=== PATIENT | female | born 1965 | race Caucasian/White ===

== ENCOUNTER 2017-10-02 09:49 | Emergency (ER) | payer BC ==
--- NOTE | 2017-10-02 10:18 | UC ---
FLU HPI - HPI Summary HPI Summary: Pt presents with cough, sore throat, and body aches that started yesterday. She has felt feverish, but has not taken her temperature. Has been taking ibuprofen with good relief of symptoms. She is most concerned because she is going to [place] tomorrow on business and doesn't want to be ill. She does have a history of asthma, but does not have any inhalers that she uses. Denies SOB, chest pain, abdominal pain, n/v/d/c. - History of Current Complaint Stated Complaint: SORE THROAT BODYACHES Time Seen by Provider: 10/02/17 10:17 Hx Obtained From: Patient Hx Last Menstrual Period: 11/08/15 Onset/Duration: Sudden Onset - Allergy/Home Medications Allergies/Adverse Reactions: Allergies Allergy/AdvReac Type Severity Reaction Status Date / Time No Known Allergies Allergy Verified 05/09/15 09:21 PMH/Surg Hx/FS Hx/Imm Hx Respiratory History: Asthma - Surgical History Surgical History: Yes Surgery Procedure, Year, and Place: tonsils & adenoids - Family History Known Family History: Positive: None - Social History Occupation: Employed Full-time Lives: With Family Alcohol Use: Occasionally Substance Use Type: None Smoking Status (MU): Never Smoked Tobacco Review of Systems Constitutional: Fever, Fatigue, Other - Body aches Skin: Negative Eyes: Negative ENT: Sore Throat Respiratory: Cough Cardiovascular: Negative Gastrointestinal: Negative Musculoskeletal: Negative Neurological: Negative Psychological: Negative All Other Systems Reviewed And Are Negative: Yes Physical Exam - Summary Physical Exam Summary: GENERAL: NAD. WDWN. No pain distress. SKIN: No rashes, sores, ulcers, masses, lesions. HEENT: Head: AT/NC Eyes: Conjunctiva clear without inflammation or discharge. Ears: Hearing grossly normal. TMs intact, no bulging, erythema, or edema. Nose: Nasal mucosa pink and moist. NTTP maxillary and frontal sinus. Throat: Posterior oropharynx without exudates, erythema, or tonsillar enlargement. Uvula midline. NECK: Supple. Nontender. Anterior LAD CHEST: Mild wheezing throughout. CTAB. No r/r. No accessory muscle use. Breathing comfortably and in no distress. CV: RRR. Without m/r/g. Pulses intact. Brisk cap refill. NEURO: Alert. CN II-XII grossly intact. PSYCH: Age appropriate behavior. Triage Information Reviewed: Yes Flu Course/Dx - Course Course Of Treatment: Influenza B positive. She was offered a Duoneb in the office today, but declined. - Differential Dx/Diagnosis Provider Diagnoses: Influenza B Discharge - Discharge Plan Condition: Stable Disposition: HOME Prescriptions: Albuterol HFA INHALER* [Ventolin HFA Inhaler*] 2 puff INH Q6H PRN #1 mdi PRN Reason: Sob/Wheezing Oseltamivir CAP* [Tamiflu CAP*] 75 mg PO BID #10 cap Patient Education Materials: Asthma (ED), Influenza (DC) Referrals: No Primary Care Phys,NOPCP [Primary Care Provider] - Additional Instructions: If you develop a fever, shortness of breath, chest pain, new or worsening symptoms - please call your PCP or go to the ED. Your blood pressure was mildly elevated at todays visit. Please see your primary provider within 4 weeks for recheck and re-evaluation.
[2017-10-02 10:23] VITALS: BP 134/85
[2017-10-02] MEDS ORDERED: Ibuprofen TAB* 600 MG PO ONE (10:23)
== END 2017-10-02 10:52 | disposition home or self-care (01) ==
LOC: UCEAST 09:49
DX: J10.1 Influenza due to other identified influenza virus with other respiratory manifestations (principal); J45.909 Unspecified asthma, uncomplicated
CPT/HCPCS: 87502; 99212; A9270-GY; G0463

== ENCOUNTER 2017-10-19 18:45 | Emergency (ER) | payer BC ==
[2017-10-19 19:08] VITALS: BP 102/74
[2017-10-19] MEDS ORDERED: Tetan/Diph/Pertus SYR(Tdap)* 0.5 ML SYR(BOOSTRIX) use SYR IM ONE (19:43)
--- NOTE | 2017-10-19 19:47 | UC ---
Bite Injury/Animal HPI - HPI Summary HPI Summary: Was petting her neighbor's cat which she is cat-sitting, and the animal bit her on dorsum of right hand at around 10am. She has noticed increased swelling and pain when she moves hand. She is left handed. States cat is well cared for and she has not noticed any abnormal behaviour. Does not remember when her last tetanus vaccination was. - History of Current Complaint Chief Complaint: UCBiteInjury Stated Complaint: CAT BITE Time Seen by Provider: 10/19/17 19:24 Hx Obtained From: Patient Hx Last Menstrual Period: 11/08/15 ?: No Severity Currently: Moderate Severity Initially: Mild Pain Intensity: 8 Onset/Duration: Sudden Onset Type of Bite: Animal Has Animal Been Immunized?: Yes Character: Puncture Aggravating Factor(s): Exertion Alleviating Factor(s): Rest Associated Signs And Symptoms: Positive: Swelling Hx of Bite: Provoked by: - petting Animal Available for Observation: Yes Animal Control Notified: No Body - Head: 1 - puncture wound 2 - puncture wound - Allergies/Home Medications Allergies/Adverse Reactions: Allergies Allergy/AdvReac Type Severity Reaction Status Date / Time No Known Allergies Allergy Verified 10/19/17 19:01 Home Medications: Home Medications Ascorbic Acid TAB* [Vitamin C TAB*] 500 mg PO DAILY 10/19/17 [History Confirmed 10/19/17] Ibuprofen TAB* [Advil TAB*] 400 mg PO Q6H PRN 10/19/17 [History Confirmed ] Multivitamin [One Daily] 1 each PO DAILY 10/19/17 [History Confirmed 10/19/17] Pseudoephedrine HCl [Sudafed 12 Hour] 120 mg PO Q12HR PRN 10/19/17 [History Confirmed 10/19/17] Vitamin E CAP* 400 unit PO DAILY 10/19/17 [History Confirmed 10/19/17] PMH/Surg Hx/FS Hx/Imm Hx Previously Healthy: Yes - Surgical History Surgical History: Yes Surgery Procedure, Year, and Place: tonsils & adenoids - Family History Known Family History: Positive: None - Social History Alcohol Use: Occasionally Substance Use Type: None Smoking Status (MU): Never Smoked Tobacco Review of Systems Constitutional: Negative Skin: Other - puncture wound All Other Systems Reviewed And Are Negative: Yes Physical Exam Triage Information Reviewed: Yes Appearance: Well-Appearing, Obese Vital Signs: Initial Vital Signs Temp 99.5 F 10/19/17 19:03 Pulse 88 10/19/17 19:03 Resp 18 10/19/17 19:03 BP 102/74 10/19/17 19:03 Pulse Ox 100 10/19/17 19:03 Vital Signs Reviewed: Yes Eyes: Positive: Conjunctiva Clear Neck exam: Normal Respiratory: Positive: Chest non-tender, Lungs clear, Normal breath sounds, No respiratory distress Cardiovascular: Positive: RRR, No Murmur, Pulses Normal Skin Exam: Other - puncture wounds on dorsum right hand as described on exhibit Bite Injury Course/Dx - Course Course Of Treatment: start augmentin twice a day for 10 days. Wound care instructions given to patient. Patient states she will take ibuprofen she has at home. Follow up with PCP. - Differential Dx/Diagnosis Provider Diagnoses: Cat Bite Discharge - Sign-Out/Discharge Documenting (check all that apply): Discharge - Discharge Plan Condition: Stable Disposition: HOME Patient Education Materials: Animal Bite (ED) Referrals: No Primary Care Phys,NOPCP [Primary Care Provider] - [facility] [place] PHYSICIAN REFERRAL [Outside] - Billing Disposition and Condition Condition: STABLE Disposition: HOME
== END 2017-10-19 20:00 | disposition home or self-care (01) ==
LOC: UCEAST 18:45
DX: S61.431A Puncture wound without foreign body of right hand, initial encounter (principal); W55.01XA Bitten by cat, initial encounter; Y93.89 Activity, other specified; Y92.009 Unspecified place in unspecified non-institutional (private) residence as the place of occurrence of the external cause; Z23 Encounter for immunization
CPT/HCPCS: 90472; 90715; 96372; 99212; G0463

== ENCOUNTER 2017-11-08 10:09 | Emergency (ER) | payer BC ==
[2017-11-08] MEDS ORDERED: oxyCODONE/Acetamin 5/325 MG* TAB PO ONE ×2 (10:29→14:41)
[2017-11-08] MEDS ORDERED: Ketorolac INJ* 60 MG/2 ML VIAL IM ONE (10:29)
--- NOTE | 2017-11-08 10:54 | RAD ---
HISTORY: Right ankle injury COMPARISONS: December 30, 2012 VIEWS: 3, Frontal, lateral, and oblique views of the right ankle FINDINGS: BONE DENSITY: Normal. BONES: There is an oblique fracture through the distal fibula. This is comminuted. There is a transverse fracture through the medial malleolus. There are calcaneal enthesophytes. JOINTS: There is no arthropathy. ALIGNMENT: There is medial subluxation of the tibia with suspected the talus with widening of the tibiofibular interval SOFT TISSUES: Unremarkable. OTHER FINDINGS: None. IMPRESSION: FRACTURES OF THE DISTAL FIBULA AND MEDIAL MALLEOLUS WITH WIDENING OF THE TIBIOFIBULAR INTERVAL
--- NOTE | 2017-11-08 13:15 | RAD ---
INDICATION: Traumatic right ankle fracture-closed reduction COMPARISON: November 08, 2017 TECHNIQUE: AP, lateral, and oblique views were obtained. FINDINGS: There is interval closed reduction with application of a cast. There is a fracture the distal fibular diaphysis with mild posterior displacement distal fracture fragment one bone width. There is a distracted medial malleolar fragment. There is persistent lateral subluxation. IMPRESSION: CLOSED REDUCTION. LATERAL AND MEDIAL MALLEOLAR FRACTURES. PERSISTENT LATERAL SUBLUXATION AT THE ANKLE MORTISE
[2017-11-08 14:55] VITALS: BP 108/72
--- NOTE | 2017-11-08 16:24 | ED ---
Margarita Montano Gabriel, scribed for Ivan Bowles MD on 11/08/17 at 1034 . Lower Extremity - HPI Summary HPI Summary: This patient is a 52 year old F BIBA to [facility] s/p fall that occurred earlier this morning. Pt states she was walking her cat when she slipped on her back deck, twisting her right ankle. Her ankle was in an unnatural position after the fall. The patient rates the pain 7/10 in severity. Patient reports right ankle pain. Patient denies dizziness, light headedness, and LOC. - History of Current Complaint Chief Complaint: EDExtremityLower Stated Complaint: FALL/RT ANKLE PAIN Time Seen by Provider: 11/08/17 10:11 Hx Obtained From: Patient Hx Last Menstrual Period: 11/08/15 Mechanism Of Injury: Fall From A Standing Position Onset of Pain: Immediate Onset/Duration: Hours Severity Initially: Severe Severity Currently: Severe Pain Intensity: 7 Pain Scale Used: 0-10 Numeric Associated Signs And Symptoms: Positive: Swelling, Bruising. Negative: Dizziness, Syncope - Allergies/Home Medications Allergies/Adverse Reactions: Allergies Allergy/AdvReac Type Severity Reaction Status Date / Time No Known Allergies Allergy Verified 10/19/17 19:01 Home Medications: Home Medications Multivitamins/Minerals TAB* [Theragran/minerals TAB*] 1 tab PO DAILY 11/08/17 [ History Confirmed 11/08/17] PMH/Surg Hx/FS Hx/Imm Hx Endocrine/Hematology History: Denies: Hx Blood Disorders, Hx Bone Marrow Disease, Hx Diabetes, Hx Systemic Lupus Erythematosus, Hx Sickle Cell Disease Cardiovascular History: Denies: Hx Hypercholesterolemia, Hx Hypertension, Hx Rheumatic Fever, Hx Syncope GI History: Denies: Hx Cirrhosis, Hx Crohn's Disease Musculoskeletal History: Denies: Hx Arthritis Sensory History: Reports: Hx Contacts or Glasses Opthamlomology History: Reports: Hx Contacts or Glasses EENT History: Denies: Hx Seasonal Allergies - Surgical History Surgery Procedure, Year, and Place: tonsils & adenoids Infectious Disease History: No Infectious Disease History: Denies: History Other Infectious Disease, Traveled Outside the [place] in Last 30 Days - Family History Known Family History: Positive: Cardiac Disease - mother [place] at 88 , Other - cancer in elderly Negative: Renal Disease, Respiratory Disease, Seizure Disorder - Social History Lives: With Family Alcohol Use: Occasionally Hx Substance Use: No Substance Use Type: Reports: None Hx Tobacco Use: No Smoking Status (MU): Never Smoked Tobacco Review of Systems Positive: Other - right ankle pain Neurological: Negative - dizziness, light headedness, and LOC All Other Systems Reviewed And Are Negative: Yes Physical Exam - Summary Physical Exam Summary: Appearance: The patient is well-nourished in no acute distress and in no acute pain. Skin: The skin is warm and dry and skin color reflects adequate perfusion. HEENT: The head is normocephalic and atraumatic. The pupils are equal and reactive. The conjunctivae are clear and without drainage. Nares are patent and without drainage. Mouth reveals moist mucous membranes and the throat is without erythema and exudate. The external ears are intact. The ear canals are patent and without drainage. The tympanic membranes are intact. Neck: the neck is supple with full range of motion and non-tender. There are no carotid bruits. There is no neck vein distension. Respiratory: Chest is non-tender. Lungs are clear to auscultation and breath sounds are symmetrical and equal. Cardiovascular: Heart is regular rate and rhythm. There is no murmur or rub auscultated. There is no peripheral edema and pulses are symmetrical and equal. Abdomen: The abdomen is soft and non-tender. There are normal bowel sounds heard in all four quadrants and there is no organomegaly palpated. Musculoskeletal: There is no back tenderness noted. There is good capillary refill. There is no peripheral edema or calf tenderness elicited. Ecchymotic over the right medial malleolus with swelling and mild deformity Neurological: Patient is alert and oriented to person, place and time. The patient has symmetrical motor strength in all four extremities. Cranial nerves are grossly intact. Deep tendon reflexes are symmetrical and equal in all four extremities. Psychiatric: The patient has an appropriate affect and does not exhibit any anxiety or depression. Triage Information Reviewed: Yes Vital Signs On Initial Exam: Initial Vitals Temp Pulse Resp BP Pulse Ox 98.6 F 69 22 150/94 100 11/08/17 10:10 11/08/17 10:10 11/08/17 10:10 11/08/17 10:10 11/08/17 10:10 Vital Signs Reviewed: Yes Procedures - Splinting Location: right ankle Hand-Made Type: orthoglass Splint: sugar-tong - posterior Pre-Proc Neuro Vasc Exam: normal Post-Proc Neuro Vasc Exam: normal Diagnostics - Vital Signs Vital Signs Temp Pulse Resp BP Pulse Ox 11/08/17 10:10 98.6 F 69 22 150/94 100 - Laboratory Lab Statement: Any lab studies that have been ordered have been reviewed, and results considered in the medical decision making process. - Radiology ankle Xray Radiology Interpretation Completed By: Radiologist - FRACTURES OF THE DISTAL FIBULA AND MEDIAL MALLEOLUS WITH WIDENING OF THE TIBIOFIBULAR INTERVAL Dr Bowles has reivewed this report ankle xray' Radiology Interpretation Completed By: Radiologist - CLOSED REDUCTION. LATERAL AND MEDIAL MALLEOLAR FRACTURES. PERSISTENT LATERAL SUBLUXATION AT THE ANKLE MORTISE Dr. Bowles has reviewed this report. Re-Evaluation - Re-Evaluation First Eval Re-Evaluation Time: 11:26 Change: Unchanged Comment: I discussed the Xray results with the patient. Lower Extremity Course/Dx - Course Course Of Treatment: Ms. Burnette suffered a mechanical fall this AM and came in by EMS with an obvious ankle deformity. She was treated with pain medications and an x-ray revealed a subluxed bimalleolar fracture. I reduced it some and placed her in a combination posterior splint and sugartong. Dr. Weir reviewed the films and asked to follow her in the office on Sunday or Sunday. She was given crutches and pain medications. - Diagnoses Provider Diagnoses: Bimalleolar fracture of right ankle - Physician Notifications Discussed Care Of Patient With: Siddharth Kumar Time Discussed With Above Provider: 13:30 Instructed by Provider To: Other - We discussed patient care with Dr. Kumar and he has reviewed the post reduction film and has agreed to follow up with the patient in his office. Discharge - Sign-Out/Discharge Documenting (check all that apply): Discharge - Discharge Plan Condition: Stable Disposition: HOME Prescriptions: oxyCODONE/Acetamin 5/325 MG* [Percocet 5/325 TAB*] 1 tab PO Q6H PRN #20 tab MDD 4 PRN Reason: Pain Patient Education Materials: Ankle Fracture (ED) Referrals: Siddharth Kumar MD [Medical Doctor] - 11/12/17 Additional Instructions: Take ibuprofen for pain as needed. RETURN TO THE EMERGENCY DEPARTMENT FOR CHANGING OR WORSENING SYMPTOMS - Billing Disposition and Condition Condition: STABLE Disposition: HOME The documentation as recorded by the Margarita frey Gabriel accurately reflects the service I personally performed and the decisions made by me, Ivan Bowles MD.
== END 2017-11-08 14:58 | disposition home or self-care (01) ==
LOC: ED 10:09
DX: S82.841A Displaced bimalleolar fracture of right lower leg, initial encounter for closed fracture (principal); W01.0XXA Fall on same level from slipping, tripping and stumbling without subsequent striking against object, initial encounter; Y92.9 Unspecified place or not applicable
CPT/HCPCS: 96372; 99283; A9270-GY; J1885

== ENCOUNTER 2017-11-16 12:31 | Day surgery (SDC) | payer BC ==
[~2017-11-16 12:31] MED LIST: Buffered Lidocaine 0.9% SYRIN* 5 ML/SYR SYRINGE INTRADERM ONE; DiMENhydriNATE IV* 50 MG/ML VIAL IV PUSH PRN; Famotidine TAB* 20 MG PO ONE; Gabapentin CAP(*) 300 MG PO ONE; Morphine INJ* 2 MG/ML 1 ML CARPUJECT IV PRN; Naloxone* 0.4 MG/ML 1 ML VIAL IV PRN; PROCHLORPERAZINE INJ 5 MG/ML 2 ML VIAL IV PRN; Scopolamine 1.5 mg* PATCH TRANSDERM PRN; oxyCODONE/Acetamin 5/325 MG* TAB PO PRN
[2017-11-16] MEDS ORDERED: Famotidine TAB* 20 MG ONE (12:44)
[2017-11-16] MEDS ORDERED: Gabapentin CAP(*) 300 MG ONE (12:44)
[2017-11-16] MEDS ORDERED: ceFAZolin 2 GM PREMIX (*) 2 GM/50 ML BAG IVPB ONE (12:44)
[2017-11-16] MEDS ORDERED: Buffered Lidocaine 0.9% SYRIN* 5 ML/SYR SYRINGE ONE (12:45)
[2017-11-16] MEDS ORDERED: Midazolam* 1 MG/ML 5 ML VIAL (5 MG) ONE (14:13)
[2017-11-16] MEDS ORDERED: fentaNYL* 50 MCG/ML 2 ML VIAL (100 MCG VIAL) ONE ×2 (14:13→18:41)
[2017-11-16] MEDS ORDERED: Bupivacaine 0.5% PF 10 ML VIAL INJ ONE (15:26)
[2017-11-16] MEDS ORDERED: Bupivacaine 0.25% SDV* 30 ML ONE (15:26)
[2017-11-16] MEDS ORDERED: Ketorolac INJ* 30 MG/ML 1 ML VIAL ONE (16:22)
[2017-11-16] MEDS ORDERED: Propofol* 10 MG/ML 20 ML BTL IV PUSH ONE (16:22)
[2017-11-16] MEDS ORDERED: PROCHLORPERAZINE INJ 5 MG/ML 2 ML VIAL ONE ×2 (16:22→20:39)
[2017-11-16] MEDS ORDERED: Dexamethasone IV* 4 MG/ML 1 ML (4 MG) ONE (16:22)
[2017-11-16] MEDS ORDERED: Ondansetron INJ* 2 MG/ML VIAL ONE (16:22)
[2017-11-16] MEDS ORDERED: Lidocaine 2% PF * 5 ML VIAL ONE (16:22)
[2017-11-16] MEDS ORDERED: Morphine INJ* 10 MG/ML 1 ML CARPUJECT ONE ×2 (16:26→18:41)
[2017-11-16] MEDS ORDERED: oxyCODONE/Acetamin 5/325 MG* TAB ONE (18:41)
[2017-11-16] MEDS: fentaNYL* 50 MCG/ML 2 ML VIAL (100 MCG VIAL) IV PRN ×3 (18:43→19:19)
[2017-11-16 20:23] VITALS: BP 112/89
--- NOTE | 2017-11-16 20:32 | RAD ---
CPT II Codes: G9500 Indication: Right ankle fracture, traumatic Fluoroscopic services provided for referring physician. 32.6 seconds of fluoroscopy time was used. 15 spot images demonstrates internal fixation of bimalleolar fracture. IMPRESSION: Fluoroscopic services provided for referring physician for internal fixation of fracture.
[2017-11-16] MEDS ORDERED: Scopolamine 1.5 mg* PATCH ONE (20:39)
--- NOTE | 2017-11-19 02:07 | OP ---
DATE OF OPERATION: 11/16/17 [facility] DATE OF : 63 SURGEON: Siddharth Kumar MD. CARD MOUNTER: JOSE Gaffney. A physician general office assistant was required for the length of the procedure for positioning, retraction and closure assistance. ANESTHESIOLOGIST: Dr. Chase Bateman. ANESTHESIA: General anesthesia, local anesthesia, subcutaneous with Marcaine 0.25% without epinephrine. PRE-OP DIAGNOSIS: Right ankle trimalleolar fracture, displaced. POST-OP DIAGNOSES: 1. Right ankle trimalleolar fracture, displaced. 2. Right ankle talus articular cartilage injury, flap. OPERATIVE PROCEDURES: 1. Open reduction internal fixation right ankle trimalleolar fracture without posterior fixation. 2. Microfracture right ankle talus, open, with debridement of articular cartilage. ANTIBIOTICS: Ancef 2 g IV. IV FLUIDS: 2000 cc crystalloid. SKIN TO SKIN TIME: 102 minutes. TOURNIQUET TIME: 109 minutes at 300 mmHg. C-ARM RADIATION TIME: 32.6 seconds. C-ARM RADIATION EXPOSURE: 0.78892 mGy m2. SPECIMENS: None. IMPLANTS: Laterally, the patient had placed a one-third tubular 8-hole plate from [employer]. Two nonlocking screws and five locking screws were placed. All screws were 3.5 mm with the exception of one nonlocking screw placed most distally through the plate was a 4.0 mm cancellous screw. About the medial ankle, the patient had two cannulated 4.0 screws placed partially threaded long threads. COMPLICATIONS: None. ESTIMATED BLOOD LOSS: Minimal. 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 She was seen at [facility] the same day where x-rays demonstrated displaced trimalleolar ankle fracture. She was partially reduced in the emergency room, splinted, discharged, and followed up with me in clinic. The posterior malleolar fracture fragment was noted to be minimally displaced less than 2 mm and was also less than 15% of the anterior to posterior dimension of the subchondral bone of the tibial plafond. It therefore was decided, the patient would only need her medial and lateral malleolus operated on. The patient was converted to a cast in the clinic and signed up for surgery. I discussed risks and potential complications of surgery with the patient. DESCRIPTION OF PROCEDURE: Preoperatively, in the preop holding, the patient signed a written consent. Operative extremity was marked in preoperative holding. The patient was brought back to the operating room, placed supine on the operating room table. The patient was sedated and intubated. A tourniquet was placed about the right thigh. The right lower extremity was prepped with chlorhexidine and then ChloraPrep. Draping was performed. Surgical time-out was performed. Esmarch was applied and tourniquet was elevated to 300 mmHg. I decided to operate first the medial side of the ankle given that the medial malleolus fracture fragment was not comminuted. I used the standard skin approach to the medial ankle. I dissected down the medial malleolus. I debrided the fracture site of hematoma. I was able to visualize the talus. I irrigated nicely the fracture site as well as into the ankle joint. There appeared to be some irregularity about the articular cartilage at the anteromedial talus. I inspected it more closely and there was a clear flap of articular cartilage, that was displaced. This flap of articular cartilage and the bone attached to it clearly did not heal. Once the cartilage was removed, there was a clear defect of articular cartilage. It was well delineated with borders surrounded by healthy articular cartilage. I decided to do a microfracture. I debrided the transition layer between bone and articular cartilage with a curette. I then, using an ankle awl, placed one microfracture hole through the bone. I placed it deep enough so that there was bleeding from bone. I next proceeded to the fixation of the medial malleolus. I reduced the medial malleolus nicely. I placed two sharp tipped bone reduction clamps across the fracture site. I placed K-wires and obtained a position that I liked. I drilled and then I placed a cannulated screw, partially threaded, long thread, first anteriorly and then posteriorly. C-arm radiographs revealed excellent reduction of bone, I checked this visually and confirmed this well. It also confirmed excellent placement of cannulated screws. I placed a wet sponge on the medial side of the ankle and proceeded to the lateral ankle. Standard lateral ankle skin incision was made, dissected down the bone, dissected to the fracture site and irrigated the fracture site of fibrous tissue. There was much comminution about the fracture site. There was a butterfly, thin fragment posteriorly. I reduced the lateral malleolus with traction. Bone clamps were placed. I tried twice to placing lag screw first a 3.5 mm lag screw more proximally and then 2.7 mm lag screw more distally from posterior to anterior. The bite of the first screw was poor, the bite was the second screw was adequate. I then picked an appropriately size one-third tubular plate. I chose an 8-hole plate. I contoured the plate with bending in several spots and some internal rotation. It fit the bone contour nicely. I placed two nonlocking screws one proximal and one distal to the fracture site. The nonlocking screw proximal was 3.5 mm cortical, the nonlocking screw distal was 4.0 mm cancellous, full threaded. I obtained radiographs and this showed excellent reduction of bone and excellent placement of the plate. I then filled in the remainder of the screw holes as appropriate with locking screws. I placed two more locking screws proximally and three locking screws distal to the fracture site. Prior to placing the last locking screw distally, I performed stress testing to determine whether a syndesmotic screw will be required, I performed a Cotton test and an external rotation stress test. These showed no opening of the medial clear space or the tibiofibular spaces. Therefore, a syndesmotic screw was not required and I placed a fourth screw distal to the fracture line just through the lateral malleolus or distal fibula. As final films were obtained, posterior malleolus small fracture fragment was well reduced. I irrigated well both incisions. The lateral ankle wound did not have good fascia to close, so I proceeded directly on the medial and lateral side to reclose with the subcutaneous layer with buried simple stitches using Vicryl 3- 0 suture. Closure of the skin with alejandra. Xeroform, 4x4s, sterile Webril, and non-sterile Webril. A splint was placed with a posterior slab and then a sugar tong medial and lateral slab of plaster overwrapped with an Nasim bandage. The tourniquet was then dropped. The patient was awakened and extubated. DISPOSITION: The patient will be discharged home when medically stable. The patient received thorough discharge instructions. The patient received Percocet as needed for pain control. The patient received Keflex t.i.d. x7 days for infection prophylaxis. The received aspirin 325 mg p.o. b.i.d. x2 weeks for DVT prophylaxis. We will telephone the patient to discuss with her possibly anticoagulating her with Lovenox rather than aspirin given the patient' s familial history of blood clots in her father and brother including her brother having a DVT after ankle surgery. The patient is nonweight-bearing using crutches, and will follow up with me in 10 to 14 days postoperatively for wound check, removal of stitches and placement in a boot or cast. [id number]/CPS #: [id number] MTDD
[2017-11-19] MEDS ORDERED: Scopolamine PATCH Remove* 1 NOTE MISC PATCH OFF ONE (05:55)
== END 2017-11-16 20:51 | disposition home or self-care (01) ==
LOC: OR 12:31
PROVIDERS: ATTEND Orthopaedic Surgery
DX: S82.851A Displaced trimalleolar fracture of right lower leg, initial encounter for closed fracture (principal); S99.811A Other specified injuries of right ankle, initial encounter; W00.2XXA Other fall from one level to another due to ice and snow, initial encounter; Y92.008 Other place in unspecified non-institutional (private) residence as the place of occurrence of the external cause
CPT/HCPCS: 76001; A9270-GY; C1713; C1776; J0690; J0780; J1100; J1885; J2250; J2270; J2405; J2704; J3010

== ENCOUNTER → 2018-10-16 07:10 | Day surgery (SDC) | payer BC ==
[~2018-10-16 07:10] MED LIST changes: -Buffered Lidocaine 0.9% SYRIN* 5 ML/SYR SYRINGE INTRADERM ONE; +Buffered Lidocaine 1% SYRIN* 1 ML/SYRINGE INTRADERM ONE; +Bupivacaine 0.5% W/EPI SDV* 30 ML VIAL ONE; +Dexamethasone IV* 4 MG/ML 1 ML (4 MG) ONE; -Famotidine TAB* 20 MG PO ONE; -Gabapentin CAP(*) 300 MG PO ONE; +Ketorolac INJ* 30 MG/ML 1 ML VIAL ONE; +Lactated Ringers 1000 ML Bag* 1,000 ML IV SCH; +Lidocaine 1% INJ* 10 MG/ML 30 ML SDV ONE; +Midazolam* 1 MG/ML 5 ML VIAL (5 MG) ONE; -Morphine INJ* 2 MG/ML 1 ML CARPUJECT IV PRN; +Ondansetron INJ* 2 MG/ML VIAL IV PRN; +Ondansetron INJ* 2 MG/ML VIAL ONE; -PROCHLORPERAZINE INJ 5 MG/ML 2 ML VIAL IV PRN; +Propofol* 10 MG/ML 20 ML BTL ONE; -Scopolamine 1.5 mg* PATCH TRANSDERM PRN; +ceFAZolin 2 GM in NS PREMIX(*) 2 GM/100 ML BAG IVPB ONE; +fentaNYL* 50 MCG/ML 2 ML VIAL (100 MCG VIAL) ONE; +oxyCODONE/Acetamin 5/325 MG* TAB ONE
[2018-10-16] MEDS: fentaNYL* 50 MCG/ML 2 ML VIAL (100 MCG VIAL) IV PRN ×4 (10:49→11:23)
[2018-10-16 12:26] VITALS: BP 100/71
--- NOTE | 2018-10-17 11:31 | OP ---
OPERATIVE REPORT: DATE OF OPERATION: 10/16/18 - [facility] DATE OF : 63 SURGEON: Siddharth Kumar MD REGIONAL DRIVER: JOSE Gaffney The physician web assistant was required for the length of procedure for help with positioning, retraction, and closure. ANESTHESIOLOGIST: Ja Ross MD ANESTHESIA: General anesthesia, 10 cc of anesthesia: 1:1 ratio of lidocaine to Marcaine. PRE-OP DIAGNOSES: 1. Status post open reduction and internal fixation, trimalleolar right ankle fracture without posterior fixation on 11/16/17. 2. Painful hardware, right ankle. POST-OP DIAGNOSES: 1. Status post open reduction and internal fixation, trimalleolar right ankle fracture without posterior fixation on 11/16/17. 2. Painful hardware, right ankle. OPERATIVE PROCEDURE: Open removal of hardware, deep, medial and lateral right ankle. ANTIBIOTICS: Ancef 2 g IV. IV FLUIDS: 500 cc crystalloid. TOURNIQUET TIME: 56 minutes at 300 mmHg, thigh tourniquet. SKIN TO SKIN TIME: 52 minutes. RADIATION EXPOSURE: Mini C-arm utilized. Exposure and time not currently available. SPECIMEN: Plates and screws, all Synthes. Synthes one-third tubular plate with nonlocking and locking 3.5 and 4.0 mm screws removed from the lateral malleolus and 2 cannulated 3.5 mm partially threaded screws removed from medial malleolus. IMPLANTS: None. COMPLICATIONS: None. ESTIMATED BLOOD LOSS: Minimal. INDICATIONS FOR PROCEDURE: The patient underwent an uncomplicated operation on 11/16/17. I also performed a microfracture, right ankle talus, at the time of the procedure given the patient had a chondral defect, focal. The patient has continued to have some limitations postoperatively. She had prolonged soft tissue swelling about the ankle. She has had some pain about the ankle, that limits her mobility, function, her ability to walk long distances. X-rays have failed to reveal any additional possible cause of the pain. The patient requested that the hardware be removed. MRI of the ankle if that is needed will not be able to be performed with accurate results until hardware is removed. Discussed risks and potential complications of procedure including that the patient's right ankle pain persists. The patient opted for surgery. DESCRIPTION OF PROCEDURE: In preoperative holding, the patient signed a written consent. Operative extremity was marked in preoperative holding. The patient was taken back to the operating room and placed supine on the operating room table. Sedated and intubated. A tourniquet was placed about the right thigh of the patient. The right lower extremity was prepped and draped. Formal surgical time-out was preformed. Esmarch was applied and the tourniquet was elevated to 300 mmHg. I made a lateral ankle skin incision through part of the scar from the prior surgery. I dissected down to the plate and screws. I removed all these screws from the plate with a nonlocking and locking screw recycler forklift driver truck driver. I then pulled off the one-third tubular plate. I then debrided some fibrous tissue along the lateral aspect of the lateral malleolus and distal fibula with a rongeur and an osteotome. I then curetted out all bone tunnels with a small curette to stimulate healing and filling in of the tunnel. I then closed some deep tissue with buried simple stitches using Vicryl 2.0 suture and that was after I irrigated. This layer nicely closed up any view of bone. We started closure on the lateral ankle incision, buried simple stitches using Vicryl 3.0 suture to the subcutaneous tissue. We then moved to the medial side of the ankle. I made a skin incision through some of the prior skin incision scar. I dissected down to medial malleolus. Screw heads were at first not visible. I had to use mini C-arm fluoroscopy in both the AP and the lateral views to locate the screw heads. I first found the more anterior screw head. The more posterior screw head was more difficult to find, as the screw head was fully encased in bone that had overgrown it. I removed both of the screws. I curetted their bone tunnels. To get down to the screw heads, I had to split some deep tissue longitudinally and perhaps some of the superficial most fibers of the deltoid. I closed these tissues with idajca-da-laxtd stitches using Vicryl 2.0 suture. Irrigation. I then closed the medial and lateral ankle wound subcutaneous tissues with buried simple stitches using Vicryl 3.0 suture. Closure of the skin incisions with running stitches using nylon 3.0 suture. Xeroform, 4x4s, sterile CarlriNahun harden. She was extubated and brought to the PACU after the tourniquet was dropped. DISPOSITION: Wound care instructions provided. Percocet as needed for pain control. The patient will follow up with me in 10 to 14 days postoperative. I told her to wear the walking boot if she could for the first 2 weeks postoperative until her first followup appointment with me. Then she can be ambulation and activity as tolerated. [id number]/CPS #: [id number] MTDD
== END | disposition home or self-care (01) ==
LOC: OR 07:10
PROVIDERS: ATTEND Orthopaedic Surgery
DX: T84.84XA Pain due to internal orthopedic prosthetic devices, implants and grafts, initial encounter (principal); Y83.1 Surgical operation with implant of artificial internal device as the cause of abnormal reaction of the patient, or of later complication, without mention of misadventure at the time of the procedure; S82.851D Displaced trimalleolar fracture of right lower leg, subsequent encounter for closed fracture with routine healing; X58.XXXD Exposure to other specified factors, subsequent encounter; Y92.9 Unspecified place or not applicable
CPT/HCPCS: 76000; 88300; A9270-GY; J0690; J1100; J1885; J2250; J2405; J2704; J3010

== ENCOUNTER 2018-12-16 13:44 | Emergency (ER) | payer BC ==
--- OUTSIDE RECORDS SUMMARY | 2018-12-16 13:48 | XMS REPORT | Continuity of Care Document ---
:1965 External Reference #:[id number] Author Name Lauren Chamberlain Care Team Providers Name Role Phone Riana Willson M.D. Primary Care Physician Unavailable Payers Date Identification Numbers Payment Provider Subscriber Effective: 2017 Policy Number: [id number] [employer] Carla Burnette PayID: [id number] [address] [address] [place] [phone] Expires: 2017 PayID: [id number] [employer] Carla Burnette [address] [address] [place] [phone] Advance Directives Description No Information Available Problems Description No Information Family History Date Family Member(s) Observation Comments General No Current Problems Mother Heart Disease Social History Type Date Description Comments Sex Unknown Marital Status Single Lives With Roommate Occupation Rug Shampooer Work Status Currently Working for [employer] Tobacco Use Start: Unknown Never Smoked Cigarettes Smoking Status Reviewed: 11/25/18 Never Smoked Cigarettes ETOH Use Occasionally consumes alcohol Tobacco Use Start: Unknown Patient has never smoked Recreational Drug Use Never Used Drugs Exercise Type/Frequency Exercises sporadically Allergies, Adverse Reactions, Alerts Description No Known Drug Allergies Medications Active Medications SIG Qnty Indications Ordering Provider Date No Active Medications Unknown 11/25/2018 History Medications Keflex take 1 tab by 21caps Sylvester Kamara MD 10/29/2018 - 500mg Capsules mouth 3 times a 11/24/2018 day x 7 days until finished. Percocet 1 - 2 tabs by 20takeven Jain 10/16/2018 - 5-325mg mouth every 4 - 6 MD Stacy 11/03/2018 Tablets hours as needed for pain. No Active Unknown 10/02/2018 - Medications 10/16/2018 Fluticasone 2 sprays each 16units J06.9 Leticia Temi, 09/10/2018 - Propionate nostril daily as N.P. 10/02/2018 50mcg/Act needed Suspension Vitamin E 1 by mouth twice Riana Willson MD 05/22/2018 - 400Unit daily 10/02/2018 Capsules Aspirin Ec 1 tablet by mouth 60tabs Siddharth Jain 11/20/2017 - 325mg twice daily for MD Stacy 05/22/[address] 30 days Percocet 1 - 2 tabs by 30tabs Siddharth Jain 11/16/2017 - 5-325mg mouth every 4 - 6 MD Stacy 05/22/2018 Tablets hours as needed for pain. Keflex take 1 tab by 15caps Siddharth Jain 11/16/2017 - 500mg Capsules mouth 3 times a MD Stacy 05/22/2018 day x 7 days until finished. Aspirin Ec take 1 tab by 30tabs Siddharth Jain 11/16/2017 - 325mg mouth every day x MD Stacy 05/22/[address] 14 days. with food. Vitamin E Unknown - [id number] 05/22/2018 Liquid Vitamin C 1 by mouth every Unknown - 500mg day 10/02/2018 Capsules Multivitamin Women 1 by mouth every Unknown - day 10/02/2018 Tablets Immunizations CPT Code Status Date Vaccine Lot # [id number] Given 05/22/2018 Influenza Virus Vaccine, Quadrivalent, Split, [id number] Preservative Free Vital Signs Date Vital Result Comment 11/25/2018 1:06pm Height 68 inches 5'8" Weight 215.00 lb BP Systolic 124 mmHg BP Diastolic 79 mmHg Respiratory Rate 16 /min Body Temperature 96.4 F Pain Level 0 BMI (Body Mass Index) 32.7 kg/m2 11/04/2018 1:43pm Heart Rate 70 /min BP Systolic 148 mmHg BP Diastolic 78 mmHg Respiratory Rate 18 /min Body Temperature 96.8 F Pain Level 1 10/29/2018 9:30am Height 68 inches 5'8" Weight 212.00 lb BP Systolic 118 mmHg BP Diastolic 70 mmHg Respiratory Rate 15 /min Body Temperature 96.5 F Pain Level 1 BMI (Body Mass Index) 32.2 kg/m2 10/02/2018 10:25am Height 68 inches 5'8" Weight 212.00 lb Heart Rate 78 /min BP Systolic Sitting 93 mmHg BP Diastolic Sitting 68 mmHg O2 % BldC Oximetry 98 % BMI (Body Mass Index) 32.2 kg/m2 09/24/2018 9:35am Height 68 inches 5'8" Weight 215.00 lb Heart Rate 75 /min Respiratory Rate 14 /min Pain Level 3 BMI (Body Mass Index) 32.7 kg/m2 09/10/2018 3:59pm Height 68 inches 5'8" Weight 211.00 lb Heart Rate 75 /min BP Systolic 108 mmHg BP Diastolic 77 mmHg Body Temperature 97.3 F O2 % BldC Oximetry 97 % BMI (Body Mass Index) 32.1 kg/m2 05/29/2018 3:09pm Height 68 inches 5'8" Weight 218.50 lb Heart Rate 71 /min BP Systolic 120 mmHg BP Diastolic 78 mmHg Body Temperature 97.8 F O2 % BldC Oximetry 98 % BMI (Body Mass Index) 33.2 kg/m2 05/28/2018 3:31pm Height 68 inches 5'8" Weight 215.00 lb Respiratory Rate 16 /min Body Temperature 97.2 F Pain Level 3 BMI (Body Mass Index) 32.7 kg/m2 05/22/2018 12:50pm Height 68 inches 5'8" Weight 212.25 lb Heart Rate 81 /min BP Systolic 106 mmHg BP Diastolic 60 mmHg Body Temperature 97.5 F O2 % BldC Oximetry 97 % BMI (Body Mass Index) 32.3 kg/m2 02/28/2018 2:48pm Height 67 inches 5'7" Heart Rate 76 /min BP Systolic 110 mmHg BP Diastolic 70 mmHg Respiratory Rate 17 /min Body Temperature 98.0 F Pain Level 2 01/24/2018 3:40pm Height 67 inches 5'7" Heart Rate 78 /min Respiratory Rate 16 /min Pain Level 2 12/27/2017 1:05pm Height 67 inches 5'7" Heart Rate 76 /min BP Systolic 112 mmHg BP Diastolic 70 mmHg Respiratory Rate 16 /min Body Temperature 97.8 F Pain Level 2 11/29/2017 10:59am Height 67 inches 5'7" Weight 200.00 lb Heart Rate 70 /min BP Systolic 110 mmHg BP Diastolic 72 mmHg Pain Level 4 BMI (Body Mass Index) 31.3 kg/m2 11/12/2017 2:43pm Height 67 inches 5'7" Weight 200.00 lb Heart Rate 72 /min BP Systolic 128 mmHg BP Diastolic 78 mmHg Respiratory Rate 12 /min Pain Level 0 BMI (Body Mass Index) 31.3 kg/m2 Results Test Date Facility Test Result H/L Range Note Laboratory test 10/16/2018 [facility] Surgical Pathology SEE RESULT [address] [place] [address] [phone] Lipid Profile 06/20/2018 [facility] Triglycerides 81 mg/dL 2 (Trig/Chol/HDL) [place] [address] [phone] Cholesterol 192 mg/dL 3 HDL Cholesterol 52.0 mg/dL 4 LDL Cholesterol 124 mg/dL 5 Laboratory test 06/20/2018 [facility] Hemoglobin A1c 5.6 % N 4.0-5.6 6 finding 101 (Glyco HGB) [place] [address] [phone] Comp Metabolic 06/20/2018 [facility] Sodium 142 N 135-[address] mmol/[place] [address] [phone] Potassium 4.7 mmol/L N 3.5-5.0 Chloride 106 mmol/L N 101-111 Co2 Carbon Dioxide 29 mmol/L N 22-32 Anion Gap 7 mmol/L N 2-11 Glucose 97 mg/dL N 70-100 Blood Urea Nitrogen 13 mg/dL N 6-24 Creatinine 0.97 mg/dL High 0.51-0.95 BUN/Creatinine Ratio 13.4 N 8-20 Calcium 9.3 mg/dL N 8.6-10.3 Total Protein 6.4 g/dL N 6.4-8.9 Albumin 3.9 g/dL N 3.2-5.2 Globulin 2.5 g/dL N 2-4 Albumin/Globulin Ratio 1.6 N 1-3 Total Bilirubin 0.70 mg/dL N 0.2-1.0 Alkaline Phosphatase 101 U/L N 34-104 Alt 12 U/L N 7-52 Ast 16 U/L N 13-39 Egfr Non- 60.1 >60 Egfr 72.7 >60 7 Laboratory test 05/29/2018 [facility] Cytology SEE RESULT BELOW [address] [place] [address] [phone] 1 SEE RESULT BELOW Name: CARLA BURNETTE Carissa : [address]: Siddharth Kumar MD Acct: [id number] Unit: [id number] AGE: 53 Location: OR Re10/16/18 SEX: F Status: REG [facility] SPEC: [id number] WARD: 10/16/18- [facility] DR: Siddharth Kumar MD REQ: [id number] RECD: 10/16/18 STATUS: SOUT _ ORDERED: LEVEL 1 FINAL DIAGNOSIS Ankle, right, hardware removal: Foreign body (orthopedic hardware) (gross diagnosis) PRE-OPERATIVE DIAGNOSIS Retained hardware right ankle GROSS DESCRIPTION The specimen is received fresh labeled, Removed Hardware Right Ankle, and consists of a 9.3 x 1.0 x 0.1 cm silver metallic plate with multiple ovoid holes. The following inscription is identified: [id number]. Received separately in the same container are five spline-headed and four Wilbur-headed threaded to partially threaded screws ranging from 1.0 x 0.3 cm to 5.0 x 0.3 cm. Per established hospital medical staff protocol, no tissue is submitted. Gross only. Signed by and Reported on: Polina Fountain MD 10/17/18 1235 END OF REPORT DEPARTMENT OF PATHOLOGY, [address] [place] [address] Josh Mesa M.D. Director [facility] # [id number] 2 Desirable: <150 Borderline High: 150-199 High: 200-499 Very High: >500 3 Desirable: <200 Borderline High: 200-239 High: >239 4 Low: <40 Desirable: 40-60 High: >60 5 Desirable: <100 Near Optimal: 100-129 Borderline High: 130-159 High: 160-189 Very High: >189 6 Therapeutic target for the treatment of diabetes mellitus patients is <7% HBA1C, and in selective patients <6.0%. Please refer to [place] [employer] diabetic care guidelines for further information. 7 Because ethnic data is not always readily available, this report includes an eGFR for both -Americans and non- Americans. The National Kidney Disease Education Program (NKDEP) does not endorse the use of the MDRD equation for patients that are not between the ages of 18 and 70, are , have extremes of body size, muscle mass, or nutritional status, or are non- or non-. According to the National Kidney Foundation, irrespective of diagnosis, the stage of the disease is based on the level of kidney function: Stage Description GFR(mL/min/1.73 m(2)) 1 Kidney damage with normal or decreased GFR 90 2 Kidney damage with mild decrease in GFR 60-89 3 Moderate decrease in GFR 30-59 4 Severe decrease in GFR 15-29 5 Kidney failure <15 (or dialysis) 8 SEE RESULT BELOW Name: TONECARLA : [address]: Riana Willson MD Acct: [id number] Unit: [id number] AGE: 52 Location: [facility] Re05/29/18 SEX: F Status: REG REF SPEC: [id number] WARD: 05/29/[address]: Riana Willson MD REQ: [id number] RECD: 05/29/18 STATUS: SOUT _ ORDERED: TP IMAGE ANALYS, HPV/Thin Prep COMMENTS: [id number] Negative for Intraepithelial lesion or Malignancy Date Time Test Result Flag (u) Normal Range 05/29/18 5122 @ HPV RNA Negative Negative @ @ The high-risk HPV types detected by the assay include: 16, @ 18, 31, 33, 35, 39, 45, 51, 52, 56, 58, 59, 66, and 68. A. Ectocervical/Endocervical Specimen Adequacy: Satisfactory of evaluation Transformation zone component identified Patient Information: HPV: High risk HPV RNA testing regardless of pap results. Actual Specimen Date: 05/29/18 LMP If Unknown: 2015 ?: N Post Menopausal?: Y Hysterectomy?: N Previous Abnormal Pap Smears?:N Signed by and Reported on: BIRGIT Dubois (ASCP) 1532 This Pap test was evaluated with the assistance of the [employer] Test Imaging System. Due to cytologic findings at the travel agent microscope, comprehensive manual rescreening by a Senior Environmental Scientist may be required. The Pap Smear is a screening test designed to aid in the detection of premalignant and malignant conditions of the uterine cervix. It is not a diagnostic procedure and should not be used as the sole means of detecting cervical cancer. Both false- positive and false- negative reports do occur. Depending on your risk status, a Pap smear should be obtained and evaluated every 1-3 years. END OF REPORT DEPARTMENT OF PATHOLOGY, [address] [place] [address] Josh Mesa M.D. Director [facility] # [id number] Procedures Date Code Description Status 10/16/2018 Removal Implant Deep Wire,Screw Nail,Jai Or Plate Completed 10/16/2018 19170 Removal Implant Deep Wire,Screw Nail,Jai Or Plate Completed 10/02/2018 13715 EKG Tracing & Interpretation Completed 05/30/2018 76950 Biopsy Skin Lesion Single Completed 05/30/2018 35380015 Mammogram Completed 11/29/2017 66324 Short Leg Cast Completed 11/16/2017 48459 Unlisted Procedure, Leg/Ankle Completed 11/16/2017 14728 ORIF Trimalleolar Ankle FX Medial And/Or Lateral Completed Malleolus 11/16/2017 35773 ORIF Trimalleolar Ankle FX Medial And/Or Lateral Completed Malleolus 11/13/2017 24068 EKG, Interpretation Only Completed Encounters Type Date Location Provider Dx Diagnosis Office Visit 10/02/2018 [facility] Internal Dimlpe Prasad MD Z01.818 Encounter for other 10:20a Medicine preprocedural examination M25.571 Pain in right ankle and joints of right foot Office Visit 09/24/2018 9:00a Orthopedic Siddharth Jain S82.851D Displ trimalleol Services Of MD Stacy fx r low leg, C.M.A. subs for clos fx w routn heal M25.571 Pain in right ankle and joints of right foot T84.84xA Pain due to internal orthopedic prosth dev/grft, init Office Visit 09/10/2018 3:40p [facility] Internal Leticia Membreno, J06.9 Acute upper Medicine N.P. respiratory infection, unspecified Office Visit 05/30/2018 8:40a [facility] Dermatology Ciara L21.8 Other seborrheic MD Helder dermatitis L82.1 Other seborrheic keratosis D22.5 Melanocytic nevi of trunk Z80.8 Family history of malignant neoplasm of organs or systems L98.9 Disorder of the skin and subcutaneous tissue, unspecified Office Visit 05/29/2018 3:00p [facility] Internal Riana Willson, Z01.419 Encntr for district claims manager Medicine - [place] exam (general) Rd (routine) w/o abn findings H61.22 Impacted cerumen, left ear N95.2 Postmenopausal atrophic vaginitis Office Visit 05/28/2018 3:15p Orthopedic Siddharth Jain S82.851D Displ trimalleol Services Of MD Stacy fx r low leg, C.M.A. subs for clos fx w routn heal Office Visit 05/22/2018 1:00p [facility] Internal Riana Anamika, Z00.01 Encounter for Medicine - [place] general adult Rd medical exam w abnormal findings H61.22 Impacted cerumen, left ear D48.5 Neoplasm of uncertain behavior of skin Z12.31 Encntr screen mammogram for malignant neoplasm of breast Z12.11 Encounter for screening for malignant neoplasm of colon D22.5 Melanocytic nevi of trunk Z23 Encounter for immunization Office Visit 02/28/2018 Orthopedic Siddharth Jain S82.851D Displ trimalleol 2:15p Services Of MD Stacy fx r low leg, subs C.M.A. for clos fx w [facility] Office Visit 11/12/2017 Orthopedic Siddharth Jain S82.851A Displaced 2:30p Services Of MD Stacy trimalleolar C.M.A. fracture of right lower leg, init Office Visit 04/08/2011 Orthopedic Napoleon Ding, 681.00 Cellulitis & 11:15a Services Of Jarad Abscess Finger C.M.A. Unspec E906.3 Bite Other Animal Except Arthropod Plan of Treatment Future Appointment(s):11/27/2018 8:40 am - Ciara Pendleton MD at [facility] Hjxwaoxvowe77/06/2019 - Siddharth Kumar, MDM25.571 Pain in right ankle and joints of right footFollow up:Follow up: prnZ47.89 Encounter for other orthopedic aftercare
[2018-12-16 13:59] VITALS: BP 112/70
--- NOTE | 2018-12-16 14:40 | UC ---
Respiratory Complaint HPI - HPI Summary HPI Summary: Patient is a 53 year old woman, who present today to the urgent care with cough and congestion for past 3-4 days. She reports that she was traveling from [place] on and came across sick people and started having symptoms. Denies any fevers at home. She reports cough which is productive of yellowish sputum . Also has sensation of congestion. Denies any chest pain or shortness of breath .. Denies any abdominal pain , nausea or vomiting , diarrhea or constipation. - History of Current Complaint Chief Complaint: UCRespiratory Stated Complaint: COUGH, AND CHEST CONGESTION Time Seen by Provider: 12/16/18 14:36 Hx Obtained From: Patient Hx Last Menstrual Period: 11/08/15 Pain Intensity: 0 - Allergies/Home Medications Allergies/Adverse Reactions: Allergies Allergy/AdvReac Type Severity Reaction Status Date / Time No Known Allergies Allergy Verified 12/16/18 13:59 Home Medications: Home Medications Pseudoephedrine HCl [Sudafed] 30 mg PO 12/16/18 [History] PMH/Surg Hx/FS Hx/Imm Hx - Additional Past Medical History Additional PMH: Past Medical History : Asthma, and has inhaler. Uses only when she is sick Past Surgical History: Ankle fracture, tonsillectomy Family History : Noncontributory. Social History : She works at the [employer] , Occasional alcohol, non smoker, no drug use. Previously Healthy: Yes - Surgical History Surgical History: Yes Surgery Procedure, Year, and Place: tonsils & adenoids. right ankle fracture repair - Family History Known Family History: Positive: None, Cardiac Disease - mother [place] at 88 , Other - cancer in elderly , Non-Contributory Negative: Renal Disease, Respiratory Disease, Seizure Disorder - Social History Alcohol Use: Occasionally Alcohol Amount: 1 drink or 3-6 beers per week Substance Use Type: None Smoking Status (MU): Never Smoked Tobacco Review of Systems All Other Systems Reviewed And Are Negative: Yes Constitutional: Positive: Negative Skin: Positive: Negative Eyes: Positive: Negative ENT: Positive: Negative Respiratory: Positive: Cough - Productive of yellow sputum Cardiovascular: Positive: Other - Chest congestion Gastrointestinal: Positive: Negative Genitourinary: Positive: Negative Motor: Positive: Negative Neurovascular: Positive: Negative Musculoskeletal: Positive: Negative Neurological: Positive: Negative Psychological: Positive: Negative Is Patient Immunocompromised?: No Physical Exam - Summary Physical Exam Summary: Physical Exam: Const: Appears well. No signs of apparent distress present. Alert and oriented x 3. Musculo: Walks with a normal gait. Head/Face: Atraumatic, normocephalic on inspection. Eyes: EOMI and PERRLA in both eyes. Conjunctivae clear. No discharge noted ENT: Hearing normal, TM normal appearing bilaterally, non bulging , non erythematous . No tenderness on palpation / manipulation of Tragus. No mastoid tenderness. No tenderness to palpation on maxillary and frontal sinus. No pharyngeal erythema or exudates . Uvula is midline. No cervical or submandibular lymphadenopathy noted. Respiratory: Respirations are unlabored. Lungs clear to auscultation bilaterally, no wheezing , rhonchi or rales noted . CVS: Regular rate and Rhythm, S1S2 normal , no murmurs identified. Extremities: Peripheral circulation is grossly normal. Pulses 2+ Abdomen : Soft non tender , nondistended , Bowel sounds present . No guarding , rebound tenderness or rigidity noted. Skin: No lesions or rash located on the upper extremities or on the lower extremities. Neuro: Cranial nerves II to XII intact, motor and sensory intact. DTR Intact bilaterally. Mood is normal. Affect is normal. Triage Information Reviewed: Yes Vital Signs: Initial Vital Signs Temp 99.7 F 12/16/18 13:56 Pulse 79 12/16/18 13:56 Resp 18 12/16/18 13:56 BP 112/70 12/16/18 13:56 Pulse Ox 97 12/16/18 13:56 Vital Signs Reviewed: Yes Respiratory Course/Dx - Course Course Of Treatment: During the visit today, we discussed the findings and further plan. I will prescribe the medication to the pharmacy . Patient expressed understanding . - Differential Dx/Diagnosis Provider Diagnosis: Atypical pneumonia Discharge - Sign-Out/Discharge Documenting (check all that apply): Patient Departure All imaging exams completed and their final reports reviewed: No Studies - Discharge Plan Condition: Stable Disposition: HOME Prescriptions: Azithromyxin SEAN (NF) [Z-Sean (Zithromax) 250 mg tabs #6] 2 tab PO .TODAY, THEN 1 DAILY #6 tab Benzonatate CAP* [Tessalon 100 MG CAP*] 100 mg PO TID PRN 10 Days #30 cap PRN Reason: Cough Patient Education Materials: Pneumonia (ED) Referrals: Riana Willson MD [Primary Care Provider] - If Needed Additional Instructions: Please start taking the medication as prescribed to the pharmacy . Follow up with your primary care doctor in 1 week if neded. Keep yourself hydrated Ibuprofen or Tylenol as needed for fever Return to Urgent care / ER if symptoms get worse. - Billing Disposition and Condition Condition: STABLE Disposition: Home
== END 2018-12-16 14:52 | disposition home or self-care (01) ==
LOC: UCEAST 13:44
DX: J18.9 Pneumonia, unspecified organism (principal); J45.909 Unspecified asthma, uncomplicated
CPT/HCPCS: 99212; G0463